=== PATIENT | male | born 1990 | race African-American/Black ===

== ENCOUNTER 2018-06-29 20:56 | Emergency (ER) | payer OTHER ==
[2018-06-29] MEDS: NS 1,000 ML IV (21:51)
[2018-06-29] MEDS: METOCLOPRAMIDE INJ 10MG/2ML VIAL (J2765) IV (21:51)
[2018-06-29] MEDS: ACETAMINOPHEN 325 MG TAB PO (21:52)
[2018-06-29] MEDS: KETOROLAC 30 MG/ML VIAL (J1885) IV (21:52)
[2018-06-29] MEDS: dexameTHASONE 20 MG/5 ML VIAL (J1100) IV (22:55)
[2018-06-29] MEDS: SUMAtriptan SUCCINATE 6 MG/0.5 ML VIAL SC (22:56)
== END 2018-06-30 00:28 | disposition home or self-care (01) ==
LOC: M ED 06-30 00:28
DX: G43.909 Migraine, unspecified, not intractable, without status migrainosus (principal)
CPT/HCPCS: J1100

== ENCOUNTER 2018-10-01 20:46 | Emergency (ER) | payer OTHER ==
[~2018-10-01] VITALS: Ht 170.2 cm; Wt 77.7 kg
[~2018-10-01 20:46] MED LIST: BUTA-198 PO; ONDA4TAB6 PO
[2018-10-01 20:47] VITALS: BP 135/85
[2018-10-01] MEDS ORDERED: SUMAtriptan SUCCINATE 6 MG/0.5 ML VIAL SC ONE (22:30)
[2018-10-01] MEDS ORDERED: METOCLOPRAMIDE INJ 10MG/2ML VIAL (J2765) IV ONE (23:30)
[2018-10-01] MEDS ORDERED: KETOROLAC 30 MG/ML VIAL (J1885) IV ONE (23:30)
[2018-10-01] MEDS ORDERED: NS 500 ML IV ONE (23:30)
[2018-10-01] MEDS ORDERED: METOCLOPRAMIDE INJ 10MG/2ML VIAL (J2765) IM ONE (23:45)
[2018-10-01] MEDS ORDERED: KETOROLAC 30 MG/ML VIAL (J1885) IM ONE (23:45)
[2018-10-02] MEDS ORDERED: MAXA5TAB11 PO (00:02)
== END 2018-10-02 00:08 | disposition home or self-care (01) ==
LOC: M ED 20:46
DX: G43.909 Migraine, unspecified, not intractable, without status migrainosus (principal)

== ENCOUNTER 2018-10-03 12:50 | Emergency (ER) | payer OTHER ==
[~2018-10-03] VITALS: Ht 170.2 cm; Wt 77.3 kg
[~2018-10-03 12:50] MED LIST changes: +MAXA5TAB11 PO
[2018-10-03 12:51] VITALS: BP 139/84
[2018-10-03 15:10] LABS: CHLAMYDIA DNA AMPLIFICATION NEGATIVE (NEGATIVE); GC DNA AMPLIFICATION NEGATIVE (NEGATIVE)
== END 2018-10-03 13:23 | disposition home or self-care (01) ==
LOC: M ED 12:50
DX: Z20.2 Contact with and (suspected) exposure to infections with a predominantly sexual mode of transmission (principal)

== ENCOUNTER 2018-12-19 12:05 | Emergency (ER) | payer OTHER ==
[~2018-12-19] VITALS: Ht 170.2 cm; Wt 81.4 kg
[2018-12-19] MEDS ORDERED: MAXA10TA14 PO (13:40)
[2018-12-19] MEDS ORDERED: IBUP-1022 PO (13:41)
[2018-12-19] MEDS ORDERED: ONDA4TAB6 PO (13:41)
[2018-12-19 15:10] VITALS: BP 117/74
[2018-12-19] MEDS ORDERED: KETOROLAC 60 MG/2 ML VIAL (J1885) IM ONE (15:15)
[2018-12-19] MEDS ORDERED: ONDANSETRON 4 MG ORAL DISINTEGRATING TAB (Q0162 PER 1MG) PO ONE (15:15)
== END 2018-12-19 15:40 | disposition home or self-care (01) ==
LOC: M ED 12:05
DX: G43.709 Chronic migraine without aura, not intractable, without status migrainosus (principal)
CPT/HCPCS: 96372; 99283; J1885; Q0162

== ENCOUNTER 2019-05-01 07:12 | Emergency (ER) | payer OTHER ==
[~2019-05-01] VITALS: Ht 170.2 cm; Wt 81.8 kg
[~2019-05-01 07:12] MED LIST changes: +IBUP-1022 PO; +MAXA10TA14 PO
[2019-05-01] MEDS ORDERED: KETOROLAC 30 MG/ML VIAL (J1885) IV ONE (09:45)
[2019-05-01] MEDS ORDERED: METOCLOPRAMIDE INJ 10MG/2ML VIAL (J2765) IV ONE (09:45)
[2019-05-01] MEDS ORDERED: diphenhydrAMINE INJ 50MG/ML VIAL (J1200) IV ONE (09:45)
[2019-05-01 10:59] VITALS: BP 112/56
== END 2019-05-01 11:52 | disposition home or self-care (01) ==
LOC: M ED 07:12
DX: G43.909 Migraine, unspecified, not intractable, without status migrainosus (principal)
CPT/HCPCS: 96374; 96375; 99284; J1200; J1885; J2765